=== PATIENT | female | born 1980 | race Caucasian/White ===

== ENCOUNTER 2017-06-22 08:06 | Inpatient (IN) | payer MEDICAID ==
[2017-06-22] MEDS ORDERED: MISOPROSTOL 200 MCG TAB PR PRN (08:20)
[2017-06-22] MEDS ORDERED: OXYTOCIN 20 UNIT in LR 1,000 ML IV PRN (08:20)
[2017-06-22] MEDS ORDERED: IBUPROFEN 600 MG TAB PO PRN (08:20)
[2017-06-22] MEDS ORDERED: OLIVE OIL 118 ML BTL MISC PRN (08:20)
[2017-06-22] MEDS ORDERED: TERBUTALINE SULFATE 1 MG/ML VIAL IV PRN (08:20)
[2017-06-22] MEDS ORDERED: EPSOM SALT 454 GM TP PRN (08:20)
[2017-06-22] MEDS ORDERED: LR 1,000 ML IV PRN (08:20)
--- NOTE | 2017-06-22 09:32 | OBDEL ---
Info Type: Vaginal Presentation at Delivery: Vertex L&D Analgesia/Anesthesia Type: None GBS+: No Indications for Delivery: Spontaneous Labor, SROM Vaginal Delivery - Delivery Provider Delivery Physician/CNM: Pat Neves Proctoring Provider: Veda Moran - Labor and Delivery Onset of Contractions Date: 06/22/17 Onset of Contractions Time: 02:00 Onset of Contractions Type: Spontaneous Rupture of Membranes Date: 06/22/17 Rupture of Membranes Time: 02:15 Rupture of Membranes Type: Spontaneous Amniotic Fluid Color: Clear Dilation Complete Date: 06/22/17 Dilation Complete Time: 07:53 Placenta Delivery Date: 06/22/17 Placenta Delivery Time: 08:11 Total Hours of Labor: 6 Vaginal Sponge Count Correct: Yes Vaginal Needle Count Correct: Yes Vaginal Sweep Performed: No EBL: 400 Delivery Events: None Delivery Comment: precipitous delivery. [facility] for the . Heroin addict. - Medications Labor Augmentation/Induction Methods Used: None [place] Data MATTHEW: 06/21/17 Gestational Age: 40 week(s) and 1 day(s) [place] Delivery Date: 06/22/17 Delivery Time: 08:07 Sex of Infant: Female Score (1 Min): 8 Score (5 Min): 9 ICD10 Worksheet Patient Problems: Problems Problem Status Onset care insufficient Acute Heroin abuse complicating Acute Oligohydramnios in third trimester Acute Hepatitis C antibody test positive Acute Acute narcotic withdrawal Acute Malnutrition in Acute
--- NOTE | 2017-06-22 09:57 | GHP ---
[f rep st] HISTORY AND PHYSICAL DATE OF ADMISSION: 06/22/2017 The patient is a 36-year-old 11, para 4, who comes in precipitously with complaint of rupture of membranes at 2:30, clear fluid. Labor since 021. The patient states that she has been receiving routine care through [facility]. The patient states that she is Rh negative, hepatitis C positive. Significant other is with patient. The patient also states that she is a heroin abuser. Up until 3-4 days ago, she has been taking methadone 70 mg p.o. daily, but has not been receiving routine methadone x3 days. The last time patient has used heroin was around rupture of membranes and time of labor at 2:30 on 06/22/2016. Patient also states that at this time1 of her children has been adopted and the other 2 children are within the foster care system. UPDATE - AFTER D/W Dr. Jovana Reaves (the doc managing her methadone at the [facility]) she was 'using' again and hadn't been given methadone since 05/27....she advised only using 40 mg methadone now, as likely the pt might be more sensitive as she hasn't recently been on it. ALSO, IF THE PATIENT DOESN'T SEE DR REAVES BY 06/26, SHE WILL NOT BE ALLOWED BACK INTO THE METHADONE PROTOCOL UNTIL SHE GOES BACK THROUGH THE INITIATION STEPS. Dr Reaves will be at the [place] office on 06/23 and encourages pt to have appt. MEDICAL HISTORY: Heroin abuse, methadone assistance. Denies other medical difficulties. PAST SURGICAL HISTORY: The patient states no surgeries. SOCIAL HISTORY: Drug abuse. Denies tobacco use. The patient states that she has a boyfriend. States that none of her children are in her home, that her 2- year-old and 3-year-old are with foster care and her other child she has given up for adoption. reports daily marijuana use and daily 'speed'. Doesn't have a place to live - is 'couch shopping' and planning to stay with 'friend' she hopes can foster her child. GYNECOLOGICAL HISTORY: Patient denies. PHYSICAL ASSESSMENT: GENERAL: Patient is awake, alert, oriented x3. LUNGS: Clear bilaterally. ABDOMEN: Bowel sounds are positive in all 4 quadrants. EXTREMITIES: DTRs are 1+ bilaterally. Homans sign is negative. LABORATORY DATA: At this time, I do not have access to prenatals, so I do not have her labs. FROM RECORDS REC'D FROM PCMP - PT NEVER HAD LABS DONE - THEY COULDN'T FIND VEIN ASSESSMENT: IUP in active labor with precip delivery minutes after arrival. Heroin, meth use PLAN OF CARE: 1. Unknown group B Streptococcus. 2. Precipitous delivery. 3. Social work consult. 4. Consult Dr. Moran on plan of care. - added details on HP after data known 5. Acquire capability to get patient methadone 40 mg p.o. daily to assist with decreased withdrawal. /[id number]/MODL MTDD
[2017-06-22 10:18] LABS: PLATELET COUNT 144 10^3/uL (150-400)
[2017-06-22 11:55] LABS: HEPATITIS B SURFACE ANTIGEN NEGATIVE (NEGATIVE)
[2017-06-22 12:12] LABS: HEPATITIS C ANTIBODY TOTAL REACTIVE (NEGATIVE)
[2017-06-22 13:52] LABS: HIV TYPE 1 AND 2 NEGATIVE (NEGATIVE)
[2017-06-22] MEDS ORDERED: METHADONE HCL 10 MG TAB PO SCH (18:00)
[2017-06-23 03:23] VITALS: BP 140/90; PULSE 102; RESP 18; TEMP 97.4; O2SAT 96
[2017-06-23] MEDS ORDERED: METHADONE HCL 1 MG/ML SYR PO SCH (09:00)
[2017-06-23 13:05] LABS: HCV QT RNA PCR < 1 IU/mL (<15)
--- NOTE | 2017-06-23 13:16 | ASMTCMCOM ---
CM Note CM Note Notes: Mom/Baby contacted me at 5:00 PM (17:00) on 06-22-17 regarding patient being an active heroin user and having delivered a baby in the morning. I met with Lynda, the RN caring for patient and her baby and she briefed me with some hx. Met with patient who was somnolent and having difficulty staying awake to answer questions. Patient stated she had a baby bed and car seat but only mumbled when asked about her living circumstances and plans for the baby. Patient did acknowledge she needed to get to the methadone clinic in the morning to stay in the program. Patient had gone off her methadone in the last trimester and had been using heroin and methamphetamine and she confirmed this verbally to me. She stated she needs to get there before 11:00 AM. Patient was medically clear and did not have any complications. She was informed we would d/c her in the morning but we were keeping the baby for observation for withdrawal symptoms. Patient has 3 other children, one has been adopted, another is in foster care and one is in the care of patient's uncle. Patient told the nurse that she was homeless and living with a friend but she told me she could live with her friend [employer]. Patient stated she wanted to go in the morning and would have her boyfriend pick her up and take her to [facility] -methadone clinic. During the 30 minute meeting with patient she never made eye contact so I observed the baby while we were talking. The baby was having muscle contractions, grimacing, and had some tremors. These were explained in detail to the baby's nurse to determine if any were withdrawal symptoms and for the nurse to follow up on. A CPS report was made and they stated to keep the baby and they would send a worker in the morning to open a case on the .This was communicated to Lynda the nurse who assured me she would flag the chart and take the information to report. Informed Chaim the case management associate who would be the case liner today. CM will follow. Date Signed: 06/23/2017 01:15 PM Electronically Signed By:Marilyn Singh LCSW
== END 2017-06-23 00:15 | disposition left against medical advice (07) | DRG 775 ==
LOC: FLD 08:06 → FOB 11:53
PROVIDERS: ADMIT Advanced Practice Midwife; ATTEND Obstetrics & Gynecology
PROC: 10E0XZZ Delivery of Products of Conception, External Approach (ICD-10-PCS; principal; 2017-06-22)
DX: O99.324 Drug use complicating childbirth (principal); F11.220 Opioid dependence with intoxication, uncomplicated; F12.10 Cannabis abuse, uncomplicated; F15.120 Other stimulant abuse with intoxication, uncomplicated; Z3A.40 40 weeks gestation of pregnancy; Z37.0 Single live birth
CPT/HCPCS: 80307; G0472; G0480

== ENCOUNTER 2017-10-20 10:07 | Emergency (ER) | payer MEDICAID ==
[2017-10-20 10:16] VITALS: BP 140/89
[2017-10-20] MEDS ORDERED: SULFAMET/TMP DS PREPACK#2 BTL TAKEHOME ONE (10:42)
[2017-10-20] MEDS ORDERED: CEPHALEXIN 500MG PREPACK#4 BTL TAKEHOME ONE (10:42)
--- NOTE | 2017-10-20 10:42 | EDPHY ---
General Time Seen by Provider: 10/20/17 10:22 Narrative: CHIEF COMPLAINT: Forearm infection HISTORY OF PRESENT ILLNESS: Patient presents with complaints of "forearm infection." She presents in custody of [facility] with request for medical clearance. She says that she has been checked in methamphetamine and heroin for years. She last injected 12 hr ago. She has had some pain, redness and swelling to the right forearm for 2-3 months. She has no drainage. She has no fever. No difficulty bending or straightening the arm. No pain in the elbow, wrist or fingers. No chest pain or shortness of breath. No weakness, lethargy or rash. She says that she has not been evaluated for this. Her tetanus is reportedly up-to- date. No other associated complaints or modifying factors. TIME OF INJURY: 2-3 months TETANUS STATUS: Less than 2 years ago MEDICAL/SURGICAL/SOCIAL HISTORY: Denies any medical diagnoses. Admits to daily tobacco and IV drug use. REVIEW OF SYSTEMS: Ten systems reviewed and are negative unless otherwise noted in the HPI EXAMINATION General Appearance: Alert, no distress Head: normocephalic, atraumatic Cardiovascular: Symmetric radial pulses 2+. Brisk cap refill the fingers right hand Neurological: A&O, sensory symmetric, citrix lead and interossei strength symmetric Skin: Warm and dry. There are multiple areas of induration on the right anterolateral forearm. There is no cellulitis, fluctuance, warmth or crepitus. There is no tenderness. No drainage. No warmth. Extremities: Mild tenderness of the right forearm musculature. No tenderness of the right elbow or wrist. Range of motion of the upper extremities is symmetric. All compartments are soft the right upper extremity. DIFFERENTIAL DIAGNOSES: Including but not limited to cellulitis, induration, chronic injections, septic joint, abscess MDM: 10:40 a.m. Possible early phlegmon versus cellulitis versus chronic skin changes of the right upper extremity involving the forearm only. There is no evidence of septic joint. There is no evidence of DVT. No palpable fluctuance or abscess that could be drained at this time. Tetanus is up-to-date. She does admit to heroin injection frequently, including 12 hr ago. I will treat her prophylactically with Bactrim and Keflex with do not appreciate any area that needs drainage or further imaging. We discussed follow up with primary care physician. We discussed ED precautions for any redness, warmth, pain in the associated joints. She is comfortable this plan and discharged stable condition to custody of law enforcement. SUPERVISION: This patient was independently evaluated without direct involvement of or examination by the attending physician. ED Precautions: Worsening pain. Erythema, edema, cyanosis, pallor, paresthesia or anesthesia. - History Smoking Status: Current some day smoker - Objective Vital Signs: Initial Vital Signs Temperature (C) 97.9 F 10/20/17 10:13 Heart Rate 95 10/20/17 10:13 Respiratory Rate 18 10/20/17 10:13 Blood Pressure 140/89 H 10/20/17 10:13 O2 Sat (%) 96 10/20/17 10:13 O2 Delivery Mode Room Air Allergies/Adverse Reactions: No Known Allergies Allergy (Verified 10/10/13 19:05) Home Medications: Medication Instructions Recorded Ibuprofen [Motrin (*)] 600 mg PO Q6 PRN #30 tab 10/20/13 Vivitrol 07/15/14 Wellbutrin 100mg (RX) 07/15/14 traZODONE 07/15/14 Cephalexin [Keflex (*)] 500 mg PO QID #40 cap 10/20/17 Sulfamethox/Tmp 800/160 mg 1 tab PO BID 10 Days tab 10/20/17 [Bactrim Ds] Medications Given: Discontinued Medications Cephalexin (Keflex 500 Mg Prepack#4) 1 btl TAKEHOME EDNOW ONE PRN Reason: Protocol Stop: 10/20/17 10:43 Last Admin: 10/20/17 10:52 Dose: 1 btl Ondansetron HCl (Zofran Odt) 4 mg PO EDNOW ONE Stop: 10/20/17 10:55 Last Admin: 10/20/17 10:57 Dose: 4 mg Trimethoprim/Sulfamethoxazole (Bactrim Ds Prepack#2) 1 btl TAKEHOME EDNOW ONE Stop: 10/20/17 10:43 Last Admin: 10/20/17 10:53 Dose: 1 btl Departure - Departure Disposition: Home, Routine, Self-Care Clinical Impression: Polysubstance abuse, Infected forearm Condition: Good Instructions: Cephalexin (By mouth), Sulfamethoxazole/Trimethoprim (By mouth), Cellulitis (ED) Additional Instructions: 1. Bactrim 1 pill by mouth twice daily for 10 days 2. Keflex 1 pill by mouth 4 times daily for 10 days 3. [facility] 4. Return to emergency department for any worsening pain, redness, fever, swelling or any pain in the joints. Referrals: [facility],. [Clinic] - As per Instructions Prescriptions: Cephalexin [Keflex (*)] 500 mg PO QID #40 cap Sulfamethox/Tmp 800/160 mg [Bactrim Ds] 1 tab PO BID 10 Days tab
[2017-10-20] MEDS ORDERED: ONDANSETRON DISINTEGRATING 4 MG TAB PO ONE (10:54)
== END 2017-10-20 11:07 | disposition home or self-care (01) ==
LOC: EEVIPCON 10:07
DX: L08.9 Local infection of the skin and subcutaneous tissue, unspecified (principal); F19.10 Other psychoactive substance abuse, uncomplicated; F17.200 Nicotine dependence, unspecified, uncomplicated

== ENCOUNTER 2018-02-08 10:54 | Emergency (ER) | payer MEDICAID ==
--- NOTE | 2018-02-08 11:55 | EDPHY ---
H & P Stated Complaint: genralized abd pain since yesterday/"thinks she may be constipated" Time Seen by Provider: 02/08/18 11:24 HPI/ROS: CHIEF COMPLAINT: "I think I am really constipated" HISTORY OF PRESENT ILLNESS: 37-year-old homeless female history of chronic IV heroin abuse, history of recurrent constipation more than likely secondary to chronic opiate abuse, complaining of several months of abnormal bowel movements , stooling habits consists of multiple small rock-like stools, complaining of diffuse abdominal discomfort. She has attempted manual disimpaction with states that her rectal vault is empty. She 8 breakfast before coming to the ER which she tolerated well with no sequelae of pain or nausea or vomiting Denies: Chest pain, dyspnea, vomiting PRIMARY CARE PROVIDER:None REVIEW OF SYSTEMS: 10 systems reviewed and negative with the exception of the elements mentioned in the history of present illness PAST MEDICAL & SURGICAL HISTORY: Chronic IV heroin abuse. Recurrent constipation SOCIAL HISTORY: positive for IV heroin abuse PHYSICAL EXAM (Prior to examination, patient consented to physical exam, hands were washed and my usual and customary physical exam procedures followed) 1) GENERAL: Well-developed, well-nourished, alert and oriented. Appears uncomfortable. 2) HEAD: Normocephalic, atraumatic 3) HEENT: Pupils equal, round, reactive to light bilaterally. Sclera anicteric. Nasopharynx, oropharynx, clear, no lesions. Moist Mucous membranes. Ears bilaterally with normal tympanic membranes. 4) NECK: Full range of motion, no meningeal signs. 5) LUNGS: Clear auscultation bilaterally, no wheezes, no rhonchi, no retractions. 6) HEART: Regular rate and rhythm, no murmur, no heave, no gallop. 7) ABDOMEN: Diffusely tender to palpation all quadrants. No distension., 8) MUSCULOSKELETAL: Moving all extremities, no focal areas of tenderness, no obvious trauma. No peripheral edema or discoloration. 9) BACK: No CVA tenderness, no midline vertebral tenderness, no fluctuance, no step-off, no obvious trauma, no visual or palpable abnormality. 10) SKIN: No rash, no petechiae. 11) Psychiatric: Patient is oriented X 3, there is no agitation. DIFFERENTIAL DIAGNOSIS: My differential diagnosis includes, but is not limited to, acute appendicitis, acute cholecystitis, bowel obstruction, acute pancreatitis, ovarian torsion, ectopic , gastritis and urinary tract infection. The patient understands that this diagnosis is provisional and can never be 100% accurate. This is a partial list of diagnoses considered. These considerations are based on history, physical exam, past history and reassessment. - Personal History LMP (Females 10-55): Now Current Tetanus Diphtheria and Acellular Pertussis (TDAP): Yes - Medical/Surgical History Hx Asthma: No Hx Chronic Respiratory Disease: No Hx Diabetes: No Hx Cardiac Disease: No Hx Renal Disease: No Hx Cirrhosis: No Hx Alcoholism: No Hx HIV/AIDS: No Hx Splenectomy or Spleen Trauma: No Other PMH: Hep C, heroin abuse, chronic pain, anxiety; SKIN SCARRED AND SCABBED FROM IV DRUG USE AND "PICKING" - Social History Smoking Status: Current some day smoker Constitutional: Initial Vital Signs Temperature (C) 36.4 C 02/08/18 11:00 Heart Rate 76 02/08/18 11:00 Respiratory Rate 18 02/08/18 11:00 Blood Pressure 145/93 H 02/08/18 11:00 O2 Sat (%) 95 02/08/18 11:00 O2 Delivery Mode Room Air Allergies/Adverse Reactions: No Known Allergies Allergy (Verified 02/08/18 10:59) Home Medications: Medication Instructions Recorded NK [No Known Home Meds] 02/08/18 Medical Decision Making - Diagnostics Imaging Results: Imaging Impressions Abdomen X-Ray 02/08/18 11:45 Impression: No source for upper abdominal pain identified. Is there any clinical concern for appendicitis? Please see above. Images reviewed myself ED Course/Re-evaluation: 11:55 a.m.: Patient currently on her menstrual period. Will obtain KUB x-ray. 12:00 p.m.: Patient declining all blood work or attempts at needle sticks 12:10 p.m.: Re-evaluation, sleeping 12:35 p.m.: Discussed with patient her x-rays. She is complaining of pain. I recommended diagnostic studies including, but not limited to, blood work and possible CT imaging. She states that she would like time to think about this 12:50 p.m.: Re-evaluation, states that she does not want any type of blood work performed, does not want any imaging studies performed. She does agree to provide urinalysis 12:55 p.m. patient provide urinalysis at this time 1:27 p.m.: Re-evaluation, I recommended diagnostic studies beyond her urinalysis. She is noted to have bilirubin in her urine. She is not . She declines all further interventions. She would like to leave. I have strongly recommend she stay in the emergency department for further evaluation. She has been informed that acute surgical abdominal pathology such as acute appendicitis, acute cholecystitis, is not ruled out. I discussed with the patient she will be leaving against medical advice. I believe her to have decision-making capacity. In my professional opinion, I think the patient necessitates further evaluation. In my professional opinion, the patient fully understands the risks to her health and well-being by leaving the emergency department AGAINST MEDICAL ADVICE. Patient states that they would like to leave. By leaving AGAINST MEDICAL ADVICE the patient has verbalized understanding and acceptance of the risks of leaving AGAINST MEDICAL ADVICE, including, but not limited to, , permanent and chronic disability, permanent and chronic loss of income, and other situations and circumstances too numerous to mention herein. I think the patient has the capacity to fully understand these risks. She is in the room with her male partner who has witness this conversation. I have offered ample opportunity to answer questions. I have offered to speak with family and/or friends regarding this issue as well. Patient has been informed that they are welcome to return to emergency department at any point for reevaluation. - Data Points Laboratory Results: 02/08/18 02/08/18 12:54 12:54 Urine Color KIMMIE Urine Appearance HAZY Urine pH 7.0 (5.0-7.5) Ur Specific [place]inkley 1.026 (1.002-1.030) Urine Protein 1+ H (NEGATIVE) Urine Ketones NEGATIVE (NEGATIVE) Urine Blood 2+ H (NEGATIVE) Urine Nitrate NEGATIVE (NEGATIVE) Urine Bilirubin POSITIVE H (NEGATIVE) Urine Urobilinogen 4.0 EU H EU (0.2-1.0) Ur Leukocyte Esterase NEGATIVE (NEGATIVE) Urine RBC 1-3 /hpf /hpf (0-3) Urine WBC 1-3 /hpf /hpf (0-3) Ur Epithelial Cells TRACE /lpf /lpf (NONE-1+) Amorphous Sediment PRESENT /hpf /hpf (NONE-1+) Urine Mucus 1+ /lpf /lpf (NONE-1+) Urine Glucose NEGATIVE (NEGATIVE) Urine Test NEGATIVE Departure - Departure Disposition: Against Medical Advice Clinical Impression: Abdominal pain Qualifiers: Abdominal location: generalized Qualified Code(s): R10.84 - Generalized abdominal pain Condition: Fair Referrals: Dinah Munoz MD [Primary Care Provider] - As per Instructions
[2018-02-08 13:49] VITALS: BP 174/109
== END 2018-02-08 13:51 | disposition left against medical advice (07) ==
DX: R10.84 Generalized abdominal pain (principal); K59.00 Constipation, unspecified; F19.10 Other psychoactive substance abuse, uncomplicated; Z59.0 Homelessness